=== PATIENT | male | born 1965 | race African-American/Black ===

== ENCOUNTER 2021-12-11 16:49 | Inpatient (IN) | payer OTHER ==
[~2021-12-11] VITALS: Ht 172.7 cm; Wt 68.2 kg
[~2021-12-11 16:49] MED LIST: NORCO 325 MG-51 TAB PO
[2021-12-11 19:51] LABS: BASO # 0.1 K/mm3 (0.0-0.2); BASO % 0.4 % (0.0-2.0); EOS # 0.6 K/mm3 (0.0-0.7); EOS % 5.5 % (0.0-4.0); GRAN # 7.4 K/mm3 (1.4-6.5); HEMATOCRIT 40.6 % (42.0-52.0); HEMOGLOBIN 13.4 g/dl (13.5-18.0); LYMPH # 1.8 K/mm3 (1.2-3.4); LYMPH % 16.3 % (20.0-51.0); MEAN CELL VOLUME 87 fl (80.0-100.0); MEAN CORPUSCULAR HEMOGLOBIN 29 pg (27-31); MEAN CORPUSCULAR HGB CONC 33 g/dl (33.0-37.0); MONO # 1.2 K/mm3 (0.1-0.6); MONO % 10.9 % (1.7-9.3); PLATELET COUNT 388 K/mm3 (130-400); RED BLOOD COUNT 4.68 M/mm3 (4.20-5.60); REDCELL DISTRIBUTION WIDTH-CV 13.5 % (11.5-14.5)
[2021-12-11 20:08] LABS: ALANINE AMINOTRANSFERASE 58 U/L (0-55); ALBUMIN 2.9 gm/dL (3.5-5.0); ALKALINE PHOSPHATASE 50 U/L (40-150); ANION GAP 8 mmol/L (7-16); AST,SGOT 30 U/L (5-34); BILIRUBIN,TOTAL 0.2 mg/dL (0.2-1.2); BLOOD UREA NITROGEN 17 mg/dL (8-26); CALCIUM 8.8 mg/dL (8.4-10.2); CARBON DIOXIDE 27 mmol/L (22-29); CHLORIDE 101 mmol/L (98-107); GLUCOSE 97 mg/dL (70-99); POTASSIUM 4.5 mmol/L (3.5-4.5); SODIUM 136 mmol/L (136-145); TOTAL PROTEIN 6.5 gm/dL (6.2-8.1)
[2021-12-11 20:16] LABS: TROPONIN-I < 0.010 ng/mL (0.00-0.033)
[2021-12-11] MEDS ORDERED: VIVLODEX5 MG PO (21:03)
[2021-12-11 22:34] LABS: COLLECTION METHOD CLEAN CATCH
[2021-12-11 22:43] LABS: PH 6 (5-8); SQUAMOUS EPITHELIAL None Seen /hpf (0-10); URINE APPEARANCE Clear (CLEAR/HAZY); URINE BACTERIA None Seen /hpf (NONE SEEN); URINE BILIRUBIN Negative (NEGATIVE); URINE BLOOD Negative (NEGATIVE); URINE COLOR Straw (YELLOW); URINE GLUCOSE Negative (NEGATIVE); URINE KETONE Negative (NEGATIVE); URINE LEUKOCYTE ESTERASE Negative (NEGATIVE); URINE NITRATE Negative (NEGATIVE); URINE PROTEIN(semi-quant) Negative (NEGATIVE); URINE RBC None Seen /hpf (0-2); URINE UROBILINOGEN Negative (NEGATIVE)
[2021-12-11] MEDS ORDERED: FLEXERIL5 MG PO (23:31)
--- NOTE | 2021-12-11 23:40 | NUR ---
Arrived to room 358 via wheelchair from ED. Oriented to room/policy. Admission assessment complete. MED rec updated. INT to R forearm flushes well with good blood return. [place]/flexeril given for pain. Up in chair due to not being comfortable in bed. K Pad provided. Plan of care discussed for this shift to include meds/pain control/calling for questions/concerns. Verbalized understanding. Call light in reach. Will monitor.
[2021-12-11 23:50] VITALS: BP 130/77; PULSE 104; TEMP 97.4
[2021-12-12 04:46] VITALS: BP 143/89; PULSE 101; TEMP 98
--- NOTE | 2021-12-12 06:05 | NUR ---
Received [place] x2/flexeril x1 this shift for pain control. VS remained stable. Denies nausea/shortness of breath. KPad provided for comfort. Is sitting up in chair due to not being able to lay down in bed. Dneies current questions/concerns. Call light in reach. Will monitor.
[2021-12-12 06:50] LABS: BASO % 0.4 % (0.0-2.0); EOS # 0.5 K/mm3 (0.0-0.7); EOS % 4.5 % (0.0-4.0); GRAN # 8.9 K/mm3 (1.4-6.5); GRAN % 79.2 % (42.2-75.2); HEMATOCRIT 38.6 % (42.0-52.0); HEMOGLOBIN 12.9 g/dl (13.5-18.0); LYMPH # 0.8 K/mm3 (1.2-3.4); MEAN CELL VOLUME 86 fl (80.0-100.0); MEAN CORPUSCULAR HEMOGLOBIN 29 pg (27-31); MEAN CORPUSCULAR HGB CONC 33 g/dl (33.0-37.0); MEAN PLATELET VOLUME 8.4 fl (7.4-10.4); MONO # 0.9 K/mm3 (0.1-0.6); MONO % 8.3 % (1.7-9.3); PLATELET COUNT 362 K/mm3 (130-400); RED BLOOD COUNT 4.47 M/mm3 (4.20-5.60); REDCELL DISTRIBUTION WIDTH-CV 13.4 % (11.5-14.5)
[2021-12-12 07:04] LABS: CALCIUM 8.5 mg/dL (8.4-10.2); CREATININE, serum 1.06 mg/dL (0.72-1.25); POTASSIUM 3.8 mmol/L (3.5-4.5)
[2021-12-12 08:11] VITALS: BP 136/95; PULSE 99; TEMP 97.7
--- NOTE | 2021-12-12 08:30 | NUR ---
PT PLEASANT AOX4, REPORTS PAIN, GRIMACING VISUALIZED, PAIN MEDICATION GIVEN WITH ALL OTHERS, ASSESSMENT PERFORMED, PT REPOSITIONED IN CHAIR, UTILIZING HEATING PAD, NO OTHER NEEDS
--- NOTE | 2021-12-12 11:35 | NUR ---
First visit from the graphic design professor. Tree Warden prayed with patient, no other needs right now.
[2021-12-12 11:49] VITALS: BP 134/89; PULSE 103; TEMP 98.1
[2021-12-12 17:02] VITALS: BP 141/98; PULSE 102; TEMP 97.6
--- NOTE | 2021-12-12 18:22 | NUR ---
PT PAIN MANAGED WITH [place]CO AND HEATING PAD, PT AOX4, UNEVENTFUL SHIFT, NO OTHER NEEDS
--- NOTE | 2021-12-12 20:30 | NUR ---
Initial shift assessment done- states having lung pain 06/13, will give a [place] at this time-informed him that if in 45Min pain is not controlled to call me and will give him another [place] per orders- states understanding-- in room, patient sitting up in recliner states he sleeps the best that way, requesting warm blankets and some Sprite and ice- given,
[2021-12-12 21:30] VITALS: BP 145/86; PULSE 104; TEMP 97.6
[2021-12-13 01:05] VITALS: BP 144/96; PULSE 95; TEMP 97.9
[2021-12-13 05:05] VITALS: BP 157/99; PULSE 95; TEMP 98.2
--- NOTE | 2021-12-13 05:15 | NUR ---
Has been sitting up in the chair all night-- resting, states left side/back pain 06/13 at this time- Did get a [place] / at 0215, Antonette called and will increase pain med to [place] 7.5-- will give at this time. Up to bathroom on own. o2 sats RA 93-95%
[2021-12-13 06:46] LABS: BASO # 0.1 K/mm3 (0.0-0.2); BASO % 0.4 % (0.0-2.0); EOS # 0.6 K/mm3 (0.0-0.7); EOS % 4.4 % (0.0-4.0); GRAN # 9.3 K/mm3 (1.4-6.5); GRAN % 72.1 % (42.2-75.2); HEMATOCRIT 39.6 % (42.0-52.0); LYMPH # 1.4 K/mm3 (1.2-3.4); MEAN CELL VOLUME 87 fl (80.0-100.0); MEAN CORPUSCULAR HEMOGLOBIN 29 pg (27-31); MEAN CORPUSCULAR HGB CONC 33 g/dl (33.0-37.0); MEAN PLATELET VOLUME 8.8 fl (7.4-10.4); MONO # 1.5 K/mm3 (0.1-0.6); MONO % 11.5 % (1.7-9.3); PLATELET COUNT 375 K/mm3 (130-400); RED BLOOD COUNT 4.53 M/mm3 (4.20-5.60); REDCELL DISTRIBUTION WIDTH-CV 13.6 % (11.5-14.5)
[2021-12-13 07:06] LABS: CALCIUM 8.8 mg/dL (8.4-10.2); CREATININE, serum 1.05 mg/dL (0.72-1.25); MAGNESIUM 1.8 mg/dL (1.6-2.6); POTASSIUM 3.8 mmol/L (3.5-4.5)
--- NOTE | 2021-12-13 08:00 | NUR ---
PT PLEASANT, AOX4, REPORTS PAIN 06/13, ASSESSMENT PERFORMED, MEDICATIONS GIVEN, NO OTHER NEEDS
[2021-12-13 09:22] VITALS: BP 144/96; PULSE 103; TEMP 98.1
[2021-12-13 12:19] VITALS: BP 140/88; PULSE 106; TEMP 97.8
--- NOTE | 2021-12-13 13:46 | NUR ---
Social Work student and JOSEPH Ozuna met with patient to discuss discharge planning. Patient lives here in [place] with his , Josefina(ph#[phone]), who was also at bedside during intake. Patient does not have a PCP, but his stated that they "are in the process of getting one." Patient's stated that they are looking to have Dr. Gallardo as his PCP, but the follow-up visit will be scheduled with Dr. Barbour. Patient receives his medications from [facility]. Patient is independent with his ADL's and does not utilize any DME. Patient states he does have a copy of his DPOA-HC at home, and his is listed as his primary agent. Discharge plan: Home
[2021-12-13 16:00] VITALS: BP 145/98; PULSE 106; TEMP 98.1
--- NOTE | 2021-12-13 17:33 | NUR ---
PT PLEASANT, AOX4, PAIN RELIEVED WITH [place] AND HEATING PAD, UNEVENTFUL SHIFT. PT REPORTS NAPPING A FEW HOURS DURING THE DAY, NO OTHER NEEDS
[2021-12-13 19:40] VITALS: BP 148/93; PULSE 106; TEMP 97.7
--- NOTE | 2021-12-13 20:22 | NUR ---
FLEXARIL GIVEN FOR PAIN LEVLE 8 TO LT SIDE.
--- NOTE | 2021-12-13 21:08 | NUR ---
PT AMB IN ROOM INDEPENDENTLY. NO RESP DISTRESS. SHIFT ASSESSMENT COMPLETED. SEE MAR FOR PAIN MEDS GIVEN FOR LT ISDE CHEST PAIN.
[2021-12-14 00:11] VITALS: BP 146/97; BP 153/103; PULSE 98; TEMP 97.6
--- NOTE | 2021-12-14 01:20 | NUR ---
BP RECHECKED 146/93.
--- NOTE | 2021-12-14 03:04 | NUR ---
PT SLEEPS IN CHAIR. NO DISTRESS.
[2021-12-14 04:51] VITALS: BP 159/111; PULSE 95; TEMP 98.1
[2021-12-14 05:12] VITALS: BP 142/100
--- NOTE | 2021-12-14 05:14 | NUR ---
RECHECKED BP MANUALLY 142/100. REPORTED TO EWELINA PERKINS. NO NEW ORDERS.
--- NOTE | 2021-12-14 06:09 | NUR ---
PT RESTING IN CHAIR WITH EYES CLOSED.
[2021-12-14 06:34] LABS: HEMATOCRIT 42.5 % (42.0-52.0); HEMOGLOBIN 14.2 g/dl (13.5-18.0); MEAN CELL VOLUME 87 fl (80.0-100.0); MEAN CORPUSCULAR HEMOGLOBIN 29 pg (27-31); MEAN CORPUSCULAR HGB CONC 33 g/dl (33.0-37.0); MEAN PLATELET VOLUME 8.7 fl (7.4-10.4); PLATELET COUNT 342 K/mm3 (130-400); RED BLOOD COUNT 4.88 M/mm3 (4.20-5.60); REDCELL DISTRIBUTION WIDTH-CV 13.4 % (11.5-14.5)
[2021-12-14 06:53] LABS: CALCIUM 9.1 mg/dL (8.4-10.2); CREATININE, serum 1.2 mg/dL (0.72-1.25)
[2021-12-14 07:55] VITALS: BP 152/108; PULSE 99; TEMP 97.5
--- NOTE | 2021-12-14 09:26 | NUR ---
Assessment completed, alert/oreinted, vital signs stable, on room air, lungs CTA/ diminished on left lung wall, no resp.difficulty noted at rest, heart RRR/ distal pulses are palapble, patient up in chair, plans for discharge home today, he denies other needs at this time
[2021-12-14] MEDS ORDERED: OMNICEF 300MG300 MG PO (09:30)
[2021-12-14 09:33] LABS: BAND 4 % (0-10); EOSINOPHIL 1 % (0-4); LYMPHOCYTE 20 % (20.0-51.0); NEUTROPHILS 68 % (42.0-75.2); PLATELET ESTIMATE NORMAL (NORMAL)
[2021-12-14] MEDS ORDERED: PREDNISONE10 MG PO (09:33)
[2021-12-14] MEDS ORDERED: FLEXERIL 1010 MG/TAB PO (09:35)
[2021-12-14] MEDS ORDERED: COLACE 100100 MG/CAP PO (09:36)
[2021-12-14] MEDS ORDERED: NORVASC 5MG5 MG/TAB PO (09:36)
[2021-12-14] MEDS ORDERED: LEADER CLE17 GM/Dose PO (09:36)
[2021-12-14] MEDS ORDERED: NORCO 325 MG-7.1 TAB PO (09:37)
[2021-12-14 11:44] VITALS: BP 143/95; PULSE 108; TEMP 97.8
--- NOTE | 2021-12-14 11:53 | NUR ---
Discharge instructions reviewed with the patient, instructed to follow up with PCP and Pulm as scheduled, instructed to show up for his Pulm function testing as we have scheduld for him, discussed all new medications and med changed with him, scripts sent to pharmacy for him, IV removed, he will be leaving with his , PRODUCT MARKETING MANAGER will escort the patient out
== END 2021-12-14 12:27 | disposition home or self-care (01) | DRG 197 ==
LOC: COL.ER 16:49 → MEDICAL 23:13
PROVIDERS: Internal Medicine; Nurse Practitioner Primary Care; Physician Assistant; Student in an Organized Health Care Education/Training Program; ADMIT Internal Medicine
DX: J84.9 Interstitial pulmonary disease, unspecified (principal); J90 Pleural effusion, not elsewhere classified; K59.00 Constipation, unspecified; R59.1 Generalized enlarged lymph nodes; Z20.822 Contact with and (suspected) exposure to COVID-19; Z87.891 Personal history of nicotine dependence
CPT/HCPCS: 99223-AI; 99232-AI; 99233-AI; 99239; J2543; J7512; Q9967